=== PATIENT | male | born 1980 | race Caucasian/White ===

== ENCOUNTER → 2018-03-05 | Outpatient (CLI) | payer OTHER ==
[~2018-03-05] MED LIST: NAPROSYN500 MG PO; PHENERGAN 25 MG25 MG PO; PREVACID15 MG; PRILOSEC 20 MG20 MG PO; XANAX 0.25 MG0.25 MG PO
== END ==
LOC: M.RAD 09:07
DX: R05 Cough (principal); R50.9 Fever, unspecified

== ENCOUNTER 2018-11-15 07:17 | Inpatient (IN) | payer OTHER ==
[~2018-11-15] VITALS: Ht 200.7 cm; Wt 113.4 kg
[2018-11-15 07:24] VITALS: BP 159/92
[2018-11-15] MEDS ORDERED: LEVSIN0.125 MG PO (07:27)
[2018-11-15] MEDS ORDERED: ZYRTEC10 M5 PO (07:28)
[2018-11-15] MEDS ORDERED: BENTYL 10 MG CA10 M1 PO (07:28)
[2018-11-15 07:45] LABS: ABSOLUTE EOSINOPHILS 0.1 thou/uL (0.0-0.7); ABSOLUTE LYMPHOCYTES 1.4 thou/uL (0.8-5.3); ABSOLUTE MONOCYTES 0.7 thou/uL (0.0-1.2); ABSOLUTE NEUTROPHILS 7.1 thou/uL (1.6-8.1); BASOPHILS 0.5 %; HEMATOCRIT 45.7 % (42.0-52.0); HEMOGLOBIN 16.1 gm/dL (14.0-18.0); LYMPHOCYTES 14.6 %; MCH 34.2 pg (26.0-34.0); MCHC 35.3 g/dL (28.0-37.0); MCV 96.8 fL (80.0-100.0); MONOCYTES 7.8 %; MPV 6.8 fl. (7.2-11.1); NUCLEATED RBCS 0 /100WBC; PLATELET COUNT* 278 thou/uL (150-400); POLYS 76.1 %; RBC 4.72 mil/uL (4.50-6.00); RDW-CV 12.6 % (10.5-14.5); WBC 9.3 thou/uL (4.0-11.0)
[2018-11-15 08:01] LABS: ANION GAP 12 mmol/L (7-16); BUN 7 mg/dL (7-18); CALCIUM 9.2 mg/dL (8.5-10.1); CHLORIDE 98 mmol/L (98-107); CO2 26 mmol/L (21-32); CREATININE 1.1 mg/dL (0.6-1.3); GLUCOSE 112 mg/dL (70-99); POTASSIUM 3.7 mmol/L (3.5-5.1); SODIUM 136 mmol/L (136-145)
[2018-11-15 08:02] LABS: ALBUMIN 4.5 g/dL (3.4-5.0); ALKALINE PHOSPHATASE 81 U/L (46-116); LIPASE 747 U/L (73-393); SGOT 90 U/L (15-37); SGPT 106 U/L (30-65); TOTAL BILIRUBIN 1.4 mg/dL (<0.1-1.0); TOTAL PROTEIN 8.1 g/dL (6.4-8.2); TROPONIN-I LEVEL <0.06 ng/mL (<0.06)
[2018-11-15 11:35] VITALS: BP 159/99
[2018-11-15 12:00] VITALS: BP 159/99
--- NOTE | 2018-11-15 14:11 | NUR ---
ASSESSMENT COMPLETE. PT ALERT AND ORIENTED X4. ADMITTED WITH PANCREATITIS. PT REPORTS PAIN WORSENING OVER THE WEEKEND. PT DENIES N/V. PT IS NPO, IV FLUIDS INFUSING. PT GIVEN TREATMENT EDUCATION, PT VERBALIZES UNDERSTANDING. PT IS UP AD HELENA WITH STEADY GAIT. DENIES ANY CONCERNS AT THIS TIME. SPOUSE AT BEDSIDE. SEE ASSESSMENT AND VITALS FOR OTHER DETAILS. CALL LIGHT WITHIN REACH, WILL CONTINUE PLAN OF CARE
--- NOTE | 2018-11-15 17:14 | EKG ---
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1980 Requested By: Tacos Hager Order Number: [id number] MD: Noah Lopes Measurements Intervals [place] Rate: 70 P: 43 MI: 147 QRS: 10 QRSD: 96 T: -2 QT: 410 QTc: 443 Interpretive Statements Sinus rhythm Left ventricular hypertrophy Borderline T abnormalities, inferior leads Baseline wander in lead(s) V6 Compared to ECG 07/01/2014 11:42:23 no change Electronically Signed On 11-15-2018 17:13:46 CDT by Noah Lopes [email or web address] <ELECTRONICALLY SIGNED> By: Noah Lopes MD, [facility] 11/15/18 1713 0749 0749 Noah Lopes MD, [facility] /EPI
[2018-11-15 20:50] VITALS: BP 146/95
[2018-11-16 04:26] LABS: HEMATOCRIT 38.6 % (42.0-52.0); MCH 34.3 pg (26.0-34.0); MCHC 34.5 g/dL (28.0-37.0); MCV 99.4 fL (80.0-100.0); RBC 3.88 mil/uL (4.50-6.00); RDW-CV 12.6 % (10.5-14.5)
[2018-11-16 04:32] LABS: HEMOGLOBIN 13.3 gm/dL (14.0-18.0)
[2018-11-16 04:36] LABS: ALBUMIN 3.2 g/dL (3.4-5.0); CALCIUM 7.9 mg/dL (8.5-10.1); MAGNESIUM 1.8 mg/dL (1.8-2.4); TOTAL BILIRUBIN 0.7 mg/dL (<0.1-1.0); TOTAL PROTEIN 6.3 g/dL (6.4-8.2)
--- NOTE | 2018-11-16 06:53 | NUR ---
PATIENT HAS SLEPT OFF AND ON DURING THE NIGHT. VSS ON RA. IV PAIN MEDICATION GIVEN ORDERED AND CHATED. ASSESSMENT CHARTED. PATIENT IS UP AD-HELENA TO THE BATHROOM. PATIENT HAS REMAINED NPO. IV IN LEFT AC-NS @ 200ML/HR. IV ABT'S GIVEN WITHOUT ANY ADVERSE SIDE EFFECTS NOTED. PATIENT INSTRUCTED TO USE CALL LIGHT WHEN NEEDING ASSISTANCE. HOURLY ROUNDS MADE. WILL CONTINUE WITH PLAN OF CARE AND NURSING TO MONITOR.
[2018-11-16 10:16] LABS: CHOLESTEROL 189 mg/dL (<200); HDL CHOLESTEROL 77 mg/dL (>40); LDL CHOLESTEROL 90 mg/dL (<100); SERUM ASSESSMENT Clear; TC:HDL 2.5 Ratio (Not establshd); TRIGLYCERIDE 113 mg/dL (<150); VLDL 23 mg/dL (<40)
--- NOTE | 2018-11-16 15:33 | NUR ---
ASSESSMENT COMPLETE. PT ALERT AND ORIENTED X4. PT IS UP AD HELENA. PRN MORPHINE AND NAUSEA MEDICATION GIVEN NEEDED. CLEAR LIQUIDS STARTED. GI FOLLOWING. AWAITING MEDICAL RECORDS. PT IS ON ROOM AIR, VSS. PT HAD SHOWER THIS AM. IV FLUIDS INFUSING. SEE ASSESSMENT AND VITALS FOR OTHER DETAILS. CALL LIGHT WITHIN REACH, WILL CONTINUE PLAN OF CARE
[2018-11-16 15:58] VITALS: BP 152/102
--- NOTE | 2018-11-16 16:24 | NUR ---
DID NOT SEE PT.TODAY. HE HAS BEEN NAUSEATED AND VOMITING. CM WILL SEE TOMORROW.
[2018-11-16 20:23] VITALS: BP 174/101
[2018-11-17 04:49] LABS: HEMATOCRIT 40.3 % (42.0-52.0); HEMOGLOBIN 13.9 gm/dL (14.0-18.0); MCHC 34.6 g/dL (28.0-37.0); MCV 98.3 fL (80.0-100.0); MPV 7.2 fl. (7.2-11.1); RBC 4.1 mil/uL (4.50-6.00); RDW-CV 12.4 % (10.5-14.5); WBC 6.7 thou/uL (4.0-11.0)
[2018-11-17 04:59] LABS: ALBUMIN 3.4 g/dL (3.4-5.0); CALCIUM 8.8 mg/dL (8.5-10.1); CREATININE 0.9 mg/dL (0.6-1.3); MAGNESIUM 1.8 mg/dL (1.8-2.4); POTASSIUM 4.1 mmol/L (3.5-5.1); TOTAL BILIRUBIN 0.8 mg/dL (<0.1-1.0); TOTAL PROTEIN 6.7 g/dL (6.4-8.2)
--- NOTE | 2018-11-17 06:35 | NUR ---
PATIENT HAS SLEPT WELL THROUGHOUT THE NIGHT. VSS ON RA, ALTHOUGH BP ELEVATED. MEDICATIONS GIVEN ORDERED AND CHARTED. PAIN MEDICATION GIVEN FOR C/O ABDOMINAL PAIN. PATIENT TOLERATING CLEAR LIQUID DIET, ALTHOUGH PATIENT HAS HAD SOME C/O NAUSEA AND ZOFRAN GIVEN. IV IN LEFT AC-NS @ 80ML/HR. PATIENT INSTRUCTED TO USE CALL LIGHT WHEN NEEDING ASSISTANCE. HOURLY ROUNDS MADE. WILL CONTINUE WITH PLAN OF CARE AND NURSING TO MONITOR.
[2018-11-17 08:10] VITALS: BP 163/94
[2018-11-17] MEDS ORDERED: PEPCID40 MG PO (09:14)
[2018-11-17] MEDS ORDERED: MIRALAX17 GM PO (09:14)
[2018-11-17] MEDS ORDERED: FLAGYL500 M1 PO (09:28)
[2018-11-17] MEDS ORDERED: CIPRO500 MG PO (09:28)
[2018-11-17 10:11] VITALS: BP 163/94
--- NOTE | 2018-11-17 12:25 | NUR ---
PATIENT DISCHARGED TO HOME. DISCHARGE PAPERS REVIEWED AND SIGNED. PRESCRIPTIONS AND INFORMATION SHEETS GIVEN. IV REMOVED. PATIENT DENIES ANY FURTHER NEEDS. PATIENT TAKEN AMBULATORY TO EXIT. LEFT WITH .
--- NOTE | 2018-11-18 17:33 | CON ---
[address] [address] CONSULTATION Name: JODI MCLEOD Room: [address] IN M.R.#: [id number] Admission: 11/15/18 Attend Phys: Ju Calhoun MD Discharge: 11/17/18 Date of : 80 Report #: [id number] THIS REPORT FOR: //name// CC: Cris Calhoun DICTATED BY: Candie Theodore [facility] DATE OF SERVICE: 11/16/2018 Please note at the time of this dictation, the patient was seen and physically examined by myself. REASON FOR CONSULTATION: Abdominal pain, abnormal Clostridium difficile colitis and pancreatitis. HISTORY OF PRESENT ILLNESS: This 38-year-old male who began having some abdominal pain 2 days prior to his visit to the Emergency Room. He states that it was remaining constant and kind of waxing and waning a little bit until yesterday afternoon, which caused him significant difficulties, trying to get out of bed and unable to do his daily activities due to the aching sensation over his entire abdomen. The patient does have issues with constipation. His last bowel movement was Thursday. He has not had one since that time. He states his bowels may not move on a regular basis, may be several days 3-4, he will have hard pellets and small evacuation and then typically followed with diarrhea and then the cycle will repeat itself. He does not take anything for his bowels at this time. The patient did state that he did have an EGD and colonoscopy approximately 2-[address] Abdifatah Garcia for having bowel issues and for reflux issues. He was placed on Dexilant daily he states which has been helping and on his colonoscopy, it was completely normal. We will obtain those records for further reference. The patient is worried also his mother recently was hospitalized with Clostridium diff and he is concerned that he may have that as well. However, he has not had any abdominal pain and no fever or chills noted at this time. ALLERGIES: No known drug allergies. MEDICATIONS: From home, alprazolam, hyoscyamine, Zyrtec and he also has some Bentyl. PAST MEDICAL HISTORY: Essentially negative except for gastroesophageal reflux disease. PAST SURGICAL HISTORY: [place] [address] CONSULTATION Name: JODI MCLEOD Room: [address]#: [id number] Admission: 11/15/18 Attend Phys: Ju Calhoun MD Discharge: 11/17/18 Date of : 80 Report #: [id number] FAMILY HISTORY: Negative. SOCIAL HISTORY: , lives with his . He does have either a beer or a hard liquor drink 5/7 nights a week and on the weekends or at the [place] more heavily in drinking and has done this for many years. Denies any illegal drug use at this time. Tobacco; he does use two cigarettes daily. REVIEW OF SYSTEMS: Twelve-point review of systems is essentially negative except what is mentioned in the HPI. PHYSICAL EXAMINATION: VITAL SIGNS: Temperature 36.8, pulse 68, respirations 16, blood pressure 146/95. HEART: Regular rate and rhythm. LUNGS: Clear. ABDOMEN: Soft, positive bowel sounds in all 4 quadrants with tenderness noted on the right side and left side, left upper and left lower quadrants as well. LABORATORY DATA: Hemoglobin 13.3, white count is 6, and platelets 225. GFR is 84 and lipase on admission was 747, he is down to 301. Total bilirubin 0.7, alkaline phosphatase 60, ALT 72, AST is 99. CT shows diffuse hepatic steatosis. He has got fat stranding around the head of the pancreas, but no pseudocyst or necrosis noted. Moderate amount of free fluid in the right pericolonic gutter likely secondary to the pancreatitis, mild bowel wall thickening of the ascending and descending colon, which is very reactive; however, chronic colitis cannot be completely ruled out. IMPRESSION: 1. Abdominal pain. 2. Hematochezia. 3. Nausea and vomiting, improved. 4. Pancreatitis. 5. Elevated liver function tests. 6. Constipation history. 7. Gastroesophageal reflux disease. 8. Alcohol misuse 5/7 days drinks. PLAN: 1. Obtain his medical records from Dr. Garcia's office on recent EGD and colonoscopy. 2. We will continue his antibiotics. 3. Clear liquid diet and can advance as tolerated. 4. We will give him some Dulcolax tablets now and start him on MiraLax daily so that he is on a better bowel regimen to prevent this from happening again. 5. We will await further recommendations from Dr. Berg once we review his colon report and he sees the patient as to whether or not a flex sig is [address] [address] CONSULTATION Name: JODI MCLEOD Room: [address] [facility] IN M.R.#: [id number] Admission: 11/15/18 Attend Phys: Ju Calhoun MD Discharge: 11/17/18 Date of : 80 Report #: [id number] warranted at this time. Thank you for allowing us to participate in this patient's care. Please do not hesitate to call with any questions in regard to this consult. I suspect the fluid in paracolic gutters is secondary to fluid accumulation from pancreatitis. Endoscopic evaluation is not warranted at this time. Otherwise agree with above assessment and plan by Candie Theodore. <ELECTRONICALLY SIGNED> By: Gerald Berg MD 11/18/18 1733 1102 1202Gerald Berg MD /nt
== END 2018-11-17 12:25 | disposition home or self-care (01) | DRG 377 ==
LOC: M.ERS 07:17 → M.ORTHSURG 10:06 → M.TBA-ER 10:06 → M.ORTHSURG 11:42
PROVIDERS: Emergency Medicine Emergency Medical Services; ADMIT Internal Medicine
DX: K92.1 Melena (principal); K85.20 Alcohol induced acute pancreatitis without necrosis or infection; K52.89 Other specified noninfective gastroenteritis and colitis; K21.9 Gastro-esophageal reflux disease without esophagitis; K76.0 Fatty (change of) liver, not elsewhere classified; F10.10 Alcohol abuse, uncomplicated; F17.210 Nicotine dependence, cigarettes, uncomplicated; Z79.899 Other long term (current) drug therapy

== ENCOUNTER 2019-09-12 17:14 | Emergency (ER) | payer OTHER ==
[~2019-09-12] VITALS: Ht 200.7 cm; Wt 108.9 kg
[~2019-09-12 17:14] MED LIST changes: +BENTYL 10 MG CA10 M1 PO; +CIPRO500 MG PO; +FLAGYL500 M1 PO; +LEVSIN0.125 MG PO; +MIRALAX17 GM PO; +PEPCID40 MG PO; +ZYRTEC10 M5 PO
[2019-09-12] MEDS ORDERED: FLEXERIL PO (18:10)
[2019-09-12] MEDS ORDERED: NORCO 5-325 TA1 EAC1 PO (18:10)
[2019-09-12 18:25] VITALS: BP 147/95
== END 2019-09-12 18:26 | disposition home or self-care (01) ==
LOC: M.ERS 17:14
DX: M62.830 Muscle spasm of back (principal); M54.42 Lumbago with sciatica, left side; M79.605 Pain in left leg; Z79.899 Other long term (current) drug therapy

== ENCOUNTER 2019-12-13 18:54 | Emergency (ER) | payer OTHER ==
[~2019-12-13] VITALS: Ht 200.7 cm; Wt 102.1 kg
[~2019-12-13 18:54] MED LIST changes: +FLEXERIL PO; +NORCO 5-325 TA1 EAC1 PO
[2019-12-13] MEDS ORDERED: DEXILANT30 MG PO (19:07)
[2019-12-13] MEDS ORDERED: ADDERALL XR 2020 MG PO (19:07)
[2019-12-13] MEDS ORDERED: SUPER THERAVIT1 EACH PO (19:08)
[2019-12-13] MEDS ORDERED: ZYRTEC10 M5 PO (19:08)
[2019-12-13 19:49] LABS: ABSOLUTE BASOPHILS 0.1 thou/uL (0.0-0.2); ABSOLUTE EOSINOPHILS 0.1 thou/uL (0.0-0.7); ABSOLUTE LYMPHOCYTES 2.3 thou/uL (0.8-5.3); ABSOLUTE MONOCYTES 0.5 thou/uL (0.0-1.2); ABSOLUTE NEUTROPHILS 3.9 thou/uL (1.6-8.1); EOSINOPHILS 0.9 %; HEMATOCRIT 40.4 % (42.0-52.0); HEMOGLOBIN 14.3 gm/dL (14.0-18.0); LYMPHOCYTES 33.5 %; MCH 36.3 pg (26.0-34.0); MCHC 35.5 g/dL (28.0-37.0); MCV 102.3 fL (80.0-100.0); MONOCYTES 7.4 %; MPV 6.3 fl. (7.2-11.1); NUCLEATED RBCS 0 /100WBC; PLATELET COUNT* 290 thou/uL (150-400); POLYS 57.2 %; RBC 3.95 mil/uL (4.50-6.00); RDW-CV 14.1 % (10.5-14.5); WBC 6.8 thou/uL (4.0-11.0)
[2019-12-13 19:57] LABS: CALCIUM 8.2 mg/dL (8.5-10.1); CREATININE 0.9 mg/dL (0.6-1.3); POTASSIUM 3.2 mmol/L (3.5-5.1)
[2019-12-13 20:01] LABS: APTT 24.7 Seconds (25.0-31.3); PROTIME 10.2 Seconds (9.20-11.50)
[2019-12-13 20:02] LABS: ALBUMIN 3.9 g/dL (3.4-5.0); TOTAL BILIRUBIN 0.4 mg/dL (<0.1-1.0); TOTAL PROTEIN 7.3 g/dL (6.4-8.2)
[2019-12-13 20:50] VITALS: BP 158/110
--- NOTE | 2019-12-14 13:23 | EKG ---
[place] [address] ELECTROCARDIOGRAM REPORT Name: JODI MCLEOD Room: [facility]#: [id number] Admission: 12/13/19 Attend Phys: Discharge: 12/13/19 Date of : 80 Date of Service: 12/13/19 190 Report #: [id number] THIS REPORT FOR: //name// 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1980 Requested By: Irasema Cueto Order Number: [id number] MD: Mich Bowen Measurements Intervals [place] Rate: 98 P: 48 [place]: 141 QRS: 5 QRSD: 88 T: QT: 376 QTc: 481 Interpretive Statements Sinus rhythm Borderline repolarization abnormality Borderline prolonged QT interval Baseline wander in lead(s) II,III,aVF,V5 Compared to ECG 11/15/2018 07:49:31 Left ventricular hypertrophy no longer present Electronically Signed On 12-14-2019 13:22:53 CDT by Mich Bowen [email or web address] <ELECTRONICALLY SIGNED> By: Mich Boewn MD, [facility] 12/14/19 1322 00 00 Mich Bowen MD, [facility] /EPI
== END 2019-12-13 20:50 | disposition left against medical advice (07) ==
LOC: M.ERS 18:54
PROVIDERS: Personal Emergency Response Attendant
DX: R07.89 Other chest pain (principal); R06.02 Shortness of breath; R19.7 Diarrhea, unspecified; Z79.899 Other long term (current) drug therapy